=== PATIENT | male | born 1985 | race Caucasian/White ===

== ENCOUNTER 2023-05-28 20:30 | Emergency (ER) | payer SELFPAY ==
[2023-05-28 20:36] VITALS: BMI 35.9
[2023-05-28] MEDS ORDERED: KETOROLAC TROMETHAMINE 30 MG/1 ML VIAL ONE (21:03)
[2023-05-28] MEDS ORDERED: ACETAMINOPHEN INJECTION 100 ML IVPB ONE (21:03)
[2023-05-28] MEDS: SODIUM CHLORIDE 1,000 ML IV STA ×2 (21:07→22:01)
[2023-05-28] MEDS: ACETAMINOPHEN 1000 MG/100 ML BAG IVPB ONE (21:07)
[2023-05-28] MEDS: KETOROLAC TROMETHAMINE 30 MG/1 ML VIAL IVPUSH ONE (21:08)
[2023-05-28 21:15] LABS: HEMATOCRIT 49.7 % (35.4-49); HEMOGLOBIN 17.1 G/dL (11.7-16.9); MCH 31.2 pg (25.7-33.7); MCHC 34.5 g/dl (32.0-35.9); MEAN CELL VOLUME 90.5 fl (80-96); PLATELET COUNT 197.9 10^3/uL (134-434); RBC 5.49 10^6/uL (4.00-5.60); RDW 13.6 % (11.9-15.9); WHITE BLOOD COUNT 10.8 10^3/uL (4.0-10.8)
[2023-05-28 21:30] LABS: ALBUMIN 4.1 g/dl (3.4-5.0); BILIRUBIN,TOTAL 0.8 mg/dl (0.2-1); POTASSIUM 3.7 mmol/L (3.5-5.1); TOT PROT 6.8 g/dl (6.4-8.2)
[2023-05-28 21:56] VITALS: BP 129/76; TEMP 100.3
[2023-05-28 22:34] VITALS: PULSE 99; RESP 17
== END 2023-05-28 22:39 | disposition home or self-care (01) ==
LOC: FER 20:30
PROC: 3E033NZ Introduction of Analgesics, Hypnotics, Sedatives into Peripheral Vein, Percutaneous Approach (ICD-10-PCS; principal; 2023-05-28)
PROC: 3E033GC Introduction of Other Therapeutic Substance into Peripheral Vein, Percutaneous Approach (ICD-10-PCS; 2023-05-28)
PROC: 3E0337Z Introduction of Electrolytic and Water Balance Substance into Peripheral Vein, Percutaneous Approach (ICD-10-PCS; 2023-05-28)
PROC: 3E0337Z Introduction of Electrolytic and Water Balance Substance into Peripheral Vein, Percutaneous Approach (ICD-10-PCS; 2023-05-28)
DX: R05.9 Cough, unspecified (principal); R51.9 Headache, unspecified; R07.89 Other chest pain; R50.9 Fever, unspecified; Z20.822 Contact with and (suspected) exposure to COVID-19
CPT/HCPCS: 0241U-QW; 36415; 71045-TC-FY; 80053; 84484; 85027; 93005; 99285-25; J0131